=== PATIENT | female | born 1975 | race Caucasian/White ===

== ENCOUNTER 2017-03-03 11:59 | Emergency (ER) | payer SELFPAY ==
[~2017-03-03] VITALS: Ht 167.6 cm; Wt 81.6 kg
[2017-03-03] MEDS ORDERED: RANI150C4 PO (12:17)
[2017-03-03] MEDS ORDERED: PROP10TA10 PO (12:17)
[2017-03-03] MEDS ORDERED: ESCI10TA PO (12:17)
[2017-03-03] MEDS ORDERED: OXCARBAZEPINE 300 MG PO (12:17)
[2017-03-03] MEDS ORDERED: TRAZ-147 PO (12:17)
[2017-03-03] MEDS ORDERED: ESOM20CA37 PO (12:17)
--- NOTE | 2017-03-03 13:04 | NUR ---
PT IS IN ROOM #2A. DR GOODMAN EVALUATED THE PT.
[2017-03-03] MEDS: KETOROLAC TROMETHAMINE 60 MG INJ IM ONE (13:16)
[2017-03-03] MEDS ORDERED: KETOROLAC TROMETHAMINE 60 MG INJ IM ONE (13:34)
--- NOTE | 2017-03-03 13:48 | NUR ---
MARK GOODMAN EVALUATED THE PT. PT WAS D/C TO HOME. E/C INSTRUCTIONS GIVEN TO THE PT.
[2017-03-03 13:50] VITALS: BP 132/77
--- NOTE | 2017-03-03 13:57 | NUR ---
Patient discharged to home in stable conditon. Written and verbal after care instructions given. Patient verbalizes understanding of instructions. Stressed follow up with pmd/ortho.
== END 2017-03-03 13:59 | disposition home or self-care (01) ==
LOC: ER 12:02
DX: S99.911A Unspecified injury of right ankle, initial encounter (principal); J45.909 Unspecified asthma, uncomplicated; F32.9 Major depressive disorder, single episode, unspecified; F41.9 Anxiety disorder, unspecified; W17.89XA Other fall from one level to another, initial encounter; Y93.01 Activity, walking, marching and hiking; Y92.89 Other specified places as the place of occurrence of the external cause; Y99.8 Other external cause status
CPT/HCPCS: 29515; 73610; 73630; 96372; 99284; A4663; J1885